=== PATIENT | female | born 1960 | race Hispanic/Latino ===

== ENCOUNTER 2023-04-25 03:10 | Inpatient (IN) | payer OTHER ==
[2023-04-25 05:07] VITALS: BMI 23.6
[2023-04-25] MEDS ORDERED: Acetaminophen 325 MG TAB PO PRN (06:11)
[2023-04-25] MEDS ORDERED: Ondansetron PF 4 MG/2 ML Vial IVP PRN (06:11)
[2023-04-25] MEDS: Lactated Ringer's 1,000 ML IV SCH ×2 (06:40→19:37)
[2023-04-25] MEDS ORDERED: Aspirin 81 mg Enteric Coated Tablet PO SCH (09:00)
[2023-04-25] MEDS ORDERED: Iopamidol-370 76% 500 ML MDV (1 ML CHARGE) ONE (09:47)
[2023-04-25] MEDS ORDERED: cefTRIAXone\\ROCEPHIN 1 GM in Sodium Chloride 0.9% 100 ML IVPB SCH (11:00)
[2023-04-25 12:13] LABS: SARS-CoV-2 NAA Rapid Test Not Detected (NotDetected)
[2023-04-26] MEDS: Lactated Ringer's 1,000 ML IV SCH ×2 (01:47→11:07)
[2023-04-26 06:10] LABS: #Basophils 0.1 thou/uL (0.0-0.2); #Eosinphils 0.1 thou/uL (0.0-0.7); #Monocytes 0.5 thou/uL (0.11-0.59); #Neutrophils 5.3 thou/uL (1.40-6.50); %Basophils 0.6 % (0.0-1.0); %Eosinophils 1.3 % (0.0-10.0); %Lymphocytes 35.9 % (21.0-51.0); %Monocytes 5.7 % (0.0-10.0); %Neutrophils 55.9 % (42.0-75.0); Hematocrit 28.1 % (36.0-47.0); Hemoglobin 9.2 g/dL (12.0-16.0); Mean Corpuscular HGB CONC 32.7 g/dL (32.0-36.0); Mean Corpuscular Hemoglobin 31.3 pg (27.0-31.0); Mean Corpuscular Volume 95.6 fl (78.0-98.0); Mean Platelet Volume 11.4 fL (7.4-10.4); Platelet Count 197 10x3/uL (130-400); RBC Distribution Width 14.2 % (11.5-14.5); Red Blood Cell (RBC) Count 2.94 mill/uL (4.20-5.40); White Blood Cell (WBC) Count 9.5 10x3/uL (4.8-10.8)
[2023-04-26 06:14] LABS: Hemoglobin A1c 5.4 % (4.0-6.0)
[2023-04-26 06:29] LABS: Albumin 2.6 g/dL (3.4-4.8); Anion Gap 12 mmol/L (10-20); BUN (Urea Nitrogen) 32 mg/dL (9.8-20.1); BUN/Creatinine Ratio 36.36; Calc. Creatinine Clearance 64 mL/min (70-130); Calcium 8.8 mg/dL (7.8-10.44); Carbon Dioxide 23 mmol/L (23-31); Chloride 108 mmol/L (98-107); Cholesterol 93 mg/dl (< 200 Desired); Estimated GFR 75; Glucose 78 mg/dL (80-115); HDL Cholesterol 31 mg/dL (>60 Neg Risk); LDL Cholesterol, Calculated 44 mg/dL; Phosphorus 1.9 mg/dL (2.3-4.7); Potassium 2.9 mmol/L (3.5-5.1); Sodium 140 mmol/L (136-145); Triglycerides 91 mg/dL (Less than 150)
[2023-04-26 07:04] LABS: Amphetamine Not Detected (NotDetected); Barbiturates Screen Not Detected (NotDetected); Benzodiazepine Screen Not Detected (NotDetected); Cocaine Metabolite Screen Not Detected (NotDetected); Methadone Not Detected (NotDetected); Methamphetamine Not Detected (NotDetected); Opiate Screen Not Detected (NotDetected); Oxycodone Screen Not Detected (NotDetected); Phencyclidine (PCP) Not Detected (NotDetected); THC/Cannabinoid Screen Not Detected (NotDetected); Tricyclic Screen Not Detected (NotDetected)
[2023-04-26] MEDS: Rosuvastatin 20 MG TAB PO SCH (10:08)
[2023-04-26] MEDS: Aspirin Chewable 81 MG TAB PO SCH (10:08)
[2023-04-26] MEDS: Pantoprazole 40 MG VIAL IVP SCH ×2 (10:10→21:36)
[2023-04-26] MEDS: Potassium Chloride 20 MEQ in Premix Bag 1 BAG IVPB SCH ×2 (10:10→14:19)
[2023-04-26] MEDS: Dextrose 5%-Lactated Ringers 1,000 ML IV SCH ×2 (10:10→19:27)
[2023-04-26 11:38] LABS: Magnesium 1.9 mg/dL (1.6-2.6)
[2023-04-26] MEDS: Metoclopramide 10 MG/10 ML UDCUP PO SCH ×2 (16:57→21:34)
[2023-04-27] MEDS: Dextrose 5%-Lactated Ringers 1,000 ML IV SCH ×3 (03:08→19:36)
[2023-04-27 08:11] LABS: #Eosinphils 0.1 thou/uL (0.0-0.7); #Monocytes 0.4 thou/uL (0.11-0.59); %Basophils 0.5 % (0.0-1.0); %Eosinophils 1.3 % (0.0-10.0); %Lymphocytes 40.5 % (21.0-51.0); %Monocytes 5.7 % (0.0-10.0); %Neutrophils 51.6 % (42.0-75.0); Hematocrit 28.6 % (36.0-47.0); Hemoglobin 9.6 g/dL (12.0-16.0); Mean Corpuscular HGB CONC 33.6 g/dL (32.0-36.0); Mean Corpuscular Hemoglobin 32.1 pg (27.0-31.0); Mean Corpuscular Volume 95.7 fl (78.0-98.0); Mean Platelet Volume 11.2 fL (7.4-10.4); Platelet Count 200 10x3/uL (130-400); RBC Distribution Width 14.3 % (11.5-14.5); Red Blood Cell (RBC) Count 2.99 mill/uL (4.20-5.40); White Blood Cell (WBC) Count 7.8 10x3/uL (4.8-10.8)
[2023-04-27] MEDS: Metoclopramide 10 MG/10 ML UDCUP PO SCH ×4 (08:48→20:53)
[2023-04-27 08:51] LABS: Albumin 2.6 g/dL (3.4-4.8); Anion Gap 8 mmol/L (10-20); BUN (Urea Nitrogen) 15 mg/dL (9.8-20.1); BUN/Creatinine Ratio 18.29; Calc. Creatinine Clearance 69 mL/min (70-130); Calcium 8.6 mg/dL (7.8-10.44); Carbon Dioxide 28 mmol/L (23-31); Chloride 108 mmol/L (98-107); Estimated GFR 81; Glucose 135 mg/dL (80-115); Phosphorus 1.2 mg/dL (2.3-4.7); Potassium 2.7 mmol/L (3.5-5.1); Sodium 141 mmol/L (136-145)
[2023-04-27] MEDS ORDERED: PROPOFOL 200 MG/20 ML VIAL ONE (09:37)
[2023-04-27] MEDS: Aspirin Chewable 81 MG TAB PO SCH (11:00)
[2023-04-27] MEDS: Rosuvastatin 20 MG TAB PO SCH (11:00)
[2023-04-27] MEDS: Pantoprazole 40 MG VIAL IVP SCH ×2 (11:00→20:53)
[2023-04-27] MEDS ORDERED: Magnesium Oxide 400 MG TAB PO SCH (15:00)
[2023-04-27] MEDS ORDERED: Potassium Phosphate 9 MMOL in Sodium Chloride 0.9% 100 ML IVPB SCH (15:00)
[2023-04-27] MEDS ORDERED: Potassium Chloride 20 MEQ TAB PO SCH ×2 (15:00→21:45)
[2023-04-27 20:48] LABS: Albumin 2.7 g/dL (3.4-4.8); Anion Gap 9 mmol/L (10-20); BUN (Urea Nitrogen) 13 mg/dL (9.8-20.1); BUN/Creatinine Ratio 17.33; Calc. Creatinine Clearance 75 mL/min (70-130); Calcium 8.6 mg/dL (7.8-10.44); Carbon Dioxide 26 mmol/L (23-31); Chloride 110 mmol/L (98-107); Estimated GFR 91; Glucose 92 mg/dL (80-115); Phosphorus 2.1 mg/dL (2.3-4.7); Potassium 3.4 mmol/L (3.5-5.1); Sodium 142 mmol/L (136-145)
[2023-04-27] MEDS ORDERED: K-Phos Neutral 250 MG TAB PO SCH (21:45)
[2023-04-28 06:46] LABS: Anion Gap 10 mmol/L (10-20); BUN (Urea Nitrogen) 12 mg/dL (9.8-20.1); Calc. Creatinine Clearance 79 mL/min (70-130); Calcium 8.8 mg/dL (7.8-10.44); Carbon Dioxide 24 mmol/L (23-31); Chloride 112 mmol/L (98-107); Estimated GFR 97; Glucose 84 mg/dL (80-115); Magnesium 1.5 mg/dL (1.6-2.6); Phosphorus 1.9 mg/dL (2.3-4.7); Potassium 3.9 mmol/L (3.5-5.1); Sodium 142 mmol/L (136-145)
[2023-04-28] MEDS: Metoclopramide 10 MG/10 ML UDCUP PO SCH ×4 (06:56→20:46)
[2023-04-28] MEDS: Dextrose 5%-Lactated Ringers 1,000 ML IV SCH ×3 (07:34→18:32)
[2023-04-28] MEDS ORDERED: Magnesium 2 GM/50 ML(in water) 2 GM in Premix Bag 1 BAG IVPB SCH (08:15)
[2023-04-28] MEDS: Rosuvastatin 20 MG TAB PO SCH (08:54)
[2023-04-28] MEDS: Aspirin Chewable 81 MG TAB PO SCH (08:54)
[2023-04-28] MEDS: Pantoprazole 40 MG VIAL IVP SCH ×2 (08:54→20:41)
[2023-04-28] MEDS: Thiamine 100 MG TAB PO SCH (08:54)
[2023-04-28] MEDS ORDERED: Potassium Chloride 20 MEQ TAB PO SCH (10:30)
[2023-04-28] MEDS ORDERED: K-Phos Neutral 250 MG TAB PO SCH (12:15)
[2023-04-29] MEDS: Dextrose 5%-Lactated Ringers 1,000 ML IV SCH (04:29)
[2023-04-29 06:19] LABS: Albumin 2.6 g/dL (3.4-4.8); Anion Gap 11 mmol/L (10-20); BUN (Urea Nitrogen) 11 mg/dL (9.8-20.1); BUN/Creatinine Ratio 13.75; Calc. Creatinine Clearance 70 mL/min (70-130); Calcium 8.4 mg/dL (7.8-10.44); Carbon Dioxide 24 mmol/L (23-31); Chloride 110 mmol/L (98-107); Estimated GFR 84; Glucose 74 mg/dL (80-115); Potassium 3.5 mmol/L (3.5-5.1); Sodium 141 mmol/L (136-145)
[2023-04-29] MEDS: Metoclopramide 10 MG/10 ML UDCUP PO SCH (06:47)
[2023-04-29 08:06] LABS: Magnesium 2.1 mg/dL (1.6-2.6)
[2023-04-29] MEDS ORDERED: K-Phos Neutral 250 MG TAB PO SCH (08:30)
[2023-04-29] MEDS: Rosuvastatin 20 MG TAB PO SCH (10:16)
[2023-04-29] MEDS: Aspirin Chewable 81 MG TAB PO SCH (10:16)
[2023-04-29] MEDS: Thiamine 100 MG TAB PO SCH (10:16)
[2023-04-29] MEDS: Pantoprazole 40 MG VIAL IVP SCH (10:17)
[2023-04-29 16:32] VITALS: BP 121/67; TEMP 98.5
[2023-04-30] MEDS ORDERED: Potassium Chloride 20 MEQ TAB PO SCH (09:00)
[2023-05-06] MEDS ORDERED: Ergocalciferol 1.25 MG(50,000 UNITS) CAP PO SCH (09:00)
== END 2023-04-29 18:48 | disposition home or self-care (01) | DRG 641 ==
LOC: SURG A 03:10 → INTOOBSV 03:10 → OBSVTOIN 04-26 14:37
PROVIDERS: ADMIT Family Medicine; ATTEND Family Medicine
PROC: 0DB68ZX Excision of Stomach, Via Natural or Artificial Opening Endoscopic, Diagnostic (ICD-10-PCS; principal; 2023-04-27)
PROC: 0DB38ZX Excision of Lower Esophagus, Via Natural or Artificial Opening Endoscopic, Diagnostic (ICD-10-PCS; 2023-04-27)
DX: E43 Unspecified severe protein-calorie malnutrition (principal); N17.9 Acute kidney failure, unspecified; I24.8 Other forms of acute ischemic heart disease; R13.10 Dysphagia, unspecified; E86.0 Dehydration; R53.81 Other malaise; N18.32 Chronic kidney disease, stage 3b; E78.5 Hyperlipidemia, unspecified; R01.1 Cardiac murmur, unspecified; E88.09 Other disorders of plasma-protein metabolism, not elsewhere classified; E87.6 Hypokalemia; R43.2 Parageusia; K44.9 Diaphragmatic hernia without obstruction or gangrene; K21.9 Gastro-esophageal reflux disease without esophagitis; K29.70 Gastritis, unspecified, without bleeding; I12.9 Hypertensive chronic kidney disease with stage 1 through stage 4 chronic kidney disease, or unspecified chronic kidney disease; Z88.0 Allergy status to penicillin; Z79.82 Long term (current) use of aspirin; Z79.899 Other long term (current) drug therapy; Z87.891 Personal history of nicotine dependence; Z83.3 Family history of diabetes mellitus; Z68.33 Body mass index [BMI] 33.0-33.9, adult; Z20.822 Contact with and (suspected) exposure to COVID-19; K22.70 Barrett's esophagus without dysplasia
CPT/HCPCS: 36415; 70491; 71045; 80048; 80061; 80069; 80306; 81003; 82550; 82570; 82607; 82728; 83036; 83735; 83880; 84100; 84443; 84630; 85025; 86140; 87086; 88305; 88342; 93005; 93010; 96365; 96375; 96376; C9113; G0378; J0696; J2704; J3475; J3480; J3490; J7120; Q9967; U0002